=== PATIENT | male | born 1985 | race Caucasian/White ===

== ENCOUNTER 2024-03-16 23:29 | Emergency (ER) | payer SELFPAY ==
[~2024-03-16] VITALS: Ht 172.7 cm; Wt 99.8 kg
[2024-03-17 00:14] VITALS: BP 157/91; TEMP 97.8; O2SAT 100
== END 2024-03-17 01:28 | disposition left against medical advice (07) ==
LOC: ER 23:39
DX: F41.9 Anxiety disorder, unspecified (principal); R20.2 Paresthesia of skin; Z86.711 Personal history of pulmonary embolism